=== PATIENT | female | born 1955 | race Caucasian/White ===

== ENCOUNTER → 2017-10-20 | Outpatient (CLI) | payer BC, OTHER | END | disposition home or self-care (01) | LOC: CVU 09:45 | PROVIDERS: ATTEND Internal Medicine Cardiovascular Disease | DX: I25.2 Old myocardial infarction (principal); I10 Essential (primary) hypertension; E66.9 Obesity, unspecified | CPT/HCPCS: 93306 ==

== ENCOUNTER 2018-09-16 09:45 | Outpatient (CLI) | payer MEDICARE | END 2018-09-16 23:59 | disposition home or self-care (01) | LOC: CVU 09:45 | PROVIDERS: ATTEND Internal Medicine Cardiovascular Disease | DX: I08.0 Rheumatic disorders of both mitral and aortic valves (principal); I10 Essential (primary) hypertension; I25.10 Atherosclerotic heart disease of native coronary artery without angina pectoris; I63.9 Cerebral infarction, unspecified | CPT/HCPCS: 93306 ==

== ENCOUNTER 2020-02-03 14:35 | Emergency (ER) | payer MEDICARE ==
[~2020-02-03] VITALS: Ht 160 cm; Wt 87.0 kg
--- NOTE | 2020-02-03 14:58 | NUR ---
RECEIVED REPORT FROM KYLEE KNOWLES.
--- NOTE | 2020-02-03 15:45 | NUR ---
PT RESTING ON GURNEY. NADN. STOCK.
--- NOTE | 2020-02-03 15:54 | NUR ---
ERP DR. SANABRIA AT BEDSIDE.
[2020-02-03] MEDS ORDERED: SODIUM CHLORIDE FLUSH 10ML SYR IVF ONE (16:30)
[2020-02-03] MEDS ORDERED: SODIUM CHLORIDE 0.9% 1,000ML IVBOLUS ONE (16:30)
--- NOTE | 2020-02-03 16:30 | NUR ---
PT RESTING ON GURNEY. NADN. STOCK.
[2020-02-03 16:46] LABS: BASOPHILS % (AUTO) 0 % (0-1); EOSINOPHILS # (AUTO) 0.01 x10^3/uL (0-0.4); EOSINOPHILS % (AUTO) 0 % (1-7); LYMPHOCYTES % (AUTO) 7 % (22-44); MD NO; MEAN CORPUSCULAR HEMOGLOBIN 30.2 pg (27.0-34.8); MEAN CORPUSCULAR HGB CONC 33.4 g/dL (32.4-35.8); MEAN CORPUSCULAR VOLUME 90.5 fL (80-100); MEAN PLATELET VOLUME 9.7 fL (7.4-10.4); MONOCYTES # (AUTO) 0.35 x10^3/uL (0.2-0.8); MONOCYTES % (AUTO) 3 % (2-9); NEUTROPHILS # (AUTO) 9.91 x10^3/uL (1.8-6.8); NEUTROPHILS % (AUTO) 90 % (42-75); PLATELET COUNT 150 x10^3/uL (130-400); RED BLOOD COUNT 4.87 x10^6/uL (3.82-5.3); RED CELL DISTRIBUTION WIDTH 14.9 % (9.6-15.2)
[2020-02-03 16:55] LABS: TROPONIN I < 0.015 ng/mL (0.000-0.045)
--- NOTE | 2020-02-03 16:59 | NUR ---
REPORT GIVEN TO KYLEE LAZAR.
--- NOTE | 2020-02-03 17:00 | NUR ---
PT STATES SHE'S FEELING BETTER AFTER IVF. STATES SHE WANTS TO GO HOME. WATER PROVIDED.
[2020-02-03 17:35] LABS: ALBUMIN 3.9 g/dL (3.4-5.0); ANION GAP 12 mmol/L (5-15); CALCIUM 8.6 mg/dL (8.5-10.1); CHLORIDE 108 mmol/L (98-107); CREATININE 0.97 mg/dL (0.55-1.02)
--- NOTE | 2020-02-03 17:48 | NUR ---
ERP AT FOR RECHECK.
[2020-02-03 18:00] VITALS: BP 126/74
--- NOTE | 2020-02-03 18:20 | NUR ---
D/C INSTRUCTIONS & F/U APPT RV'WD WITH PT, SHE VERBALIZES UNDERSTANDING. PT STATES SHE WILL F/U WITH HER PCP. AMBULATED OUT OF ED WITH STEADY GAIT WITH FRIEND.
== END 2020-02-03 18:39 | disposition home or self-care (01) ==
LOC: ED 18:32
DX: E86.0 Dehydration (principal); E86.1 Hypovolemia; R55 Syncope and collapse; R19.7 Diarrhea, unspecified; R42 Dizziness and giddiness; R94.31 Abnormal electrocardiogram [ECG] [EKG]
CPT/HCPCS: 36415; 80048; 82040; 84484; 85025; 93005; 96360; 99284; J7030